=== PATIENT | male | born 1995 | race Caucasian/White ===

== ENCOUNTER 2019-11-21 16:22 | Outpatient (CLI) | payer OTHER ==
--- NOTE | 2019-11-21 17:05 | RAD ---
RIGHT ANKLE: 11/21/19 Three views. HISTORY: Pain. No soft tissue swelling. No evidence of fracture. No osseous abnormality identified. IMPRESSION: No acute findings. POS: OFF
== END 2019-11-21 16:23 | disposition home or self-care (01) ==
LOC: BURRAD 16:22
PROVIDERS: ATTEND Family Medicine
DX: M25.571 Pain in right ankle and joints of right foot (principal); G89.29 Other chronic pain

== ENCOUNTER 2024-01-17 20:56 | Emergency (ER) | payer MEDICAID, SELFPAY ==
[2024-01-17 21:56] LABS: #Basophils 0.1 thou/uL (0.0-0.2); #Eosinphils 0.1 thou/uL (0.0-0.7); #Lymphocytes 2.4 thou/uL (1.20-3.40); #Monocytes 1.6 thou/uL (0.11-0.59); #Neutrophils 11.4 thou/uL (1.40-6.50); %Basophils 0.5 % (0.0-1.0); %Eosinophils 0.7 % (0.0-10.0); %Lymphocytes 15.7 % (21.0-51.0); Hematocrit 41.4 % (42.0-52.0); Hemoglobin 14.4 g/dL (14.0-18.0); Mean Corpuscular HGB CONC 34.8 g/dL (32.0-36.0); Mean Corpuscular Hemoglobin 30.3 pg (27.0-31.0); Mean Corpuscular Volume 86.8 fl (78.0-98.0); Mean Platelet Volume 7.7 fL (7.4-10.4); Platelet Count 254 10x3/uL (130-400); Red Blood Cell (RBC) Count 4.77 mill/uL (4.70-6.10); White Blood Cell (WBC) Count 15.6 10x3/uL (4.8-10.8)
[2024-01-17 22:15] LABS: ALT (SGPT) 15 U/L (8-55); AST (SGOT) 14 U/L (5-34); Albumin 4.3 g/dL (3.5-5.0); Alkaline Phosphatase 64 U/L (40-110); Anion Gap 13 mmol/L (10-20); BUN (Urea Nitrogen) 11 mg/dL (8.9-20.6); Bilirubin, Total 2.6 mg/dL (0.2-1.2); Calc. Creatinine Clearance 0 mL/min (70-130); Calcium 9.5 mg/dL (7.8-10.44); Carbon Dioxide 25 mmol/L (22-29); Chloride 104 mmol/L (98-107); Estimated GFR 84; Globulin 3.2 g/dL (2.4-3.5); Glucose 128 mg/dL (70-105); Potassium 3.2 mmol/L (3.5-5.1); Protein, Total 7.5 g/dL (6.0-8.3); Sodium 139 mmol/L (136-145)
[2024-01-17 22:46] LABS: Lipase 9 U/L (8-78)
== END 2024-01-17 22:39 | disposition home or self-care (01) ==
LOC: BURERS 20:56
DX: R10.30 Lower abdominal pain, unspecified (principal); E86.0 Dehydration
CPT/HCPCS: 80053; 83605; 83690; 85025; 96360

== ENCOUNTER 2025-06-19 15:02 | Emergency (ER) | payer SELFPAY ==
[2025-06-19] MEDS ORDERED: Boostrix 0.5 ML (Tdap) VIAL (>/=7 yrs of age) ONE (15:17)
[2025-06-19] MEDS ORDERED: Amoxicillin/Potassium Clav 875 MG TAB ONE (16:04)
== END 2025-06-19 16:10 | disposition home or self-care (01) ==
LOC: BURERS 15:02
DX: S62.663A Nondisplaced fracture of distal phalanx of left middle finger, initial encounter for closed fracture (principal); Z23 Encounter for immunization; W23.0XXA Caught, crushed, jammed, or pinched between moving objects, initial encounter
CPT/HCPCS: 90715